=== PATIENT | male | born 1995 | race Caucasian/White ===

== ENCOUNTER 2019-07-11 17:36 | Emergency (ER) | payer OTHER, SELFPAY ==
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
[2019-07-11 17:37] VITALS: BP 145/90; PULSE 94; RESP 20; TEMP 36.5; O2SAT 99
--- NOTE | 2019-07-11 17:43 | ECG_ITS ---
Measurements Intervals [place] Rate: 87 P: 32 ND: 150 QRS: 14 QRSD: 114 T: 17 QT: 346 QTc: 418 Interpretive Statements SINUS RHYTHM INTRAVENTRICULAR CONDUCTION DELAY ST ELEVATION IN ANT/LAT LEADS- PROBABLY EARLY REPOLARIZATION BORDERLINE ECG Electronically Signed On 07-11-2019 18:19:25 CDT by Jean Carlos De La Garza D.O.
[2019-07-11 18:03] LABS: Basophils Absolute Auto 0.1 K/mm3 (0.0-0.1); Basophils Percent Auto 0.7 % (0.2-1.2); Eosinophils Absolute Auto 0.1 K/mm3 (0-0.3); Eosinophils Percent Auto 1.5 % (0-4.4); Hematocrit 43.5 % (42.0-52.0); Hemoglobin 14.6 g/dL (14.0-18.0); Immature Granulocyte Absolute 0.02 K/mm3 (0.00-0.031); Immature Granulocyte Percent A 0.3 % (0-0.5); Lymphocytes Percent Auto 37.3 % (18.3-44.2); Mean Corpuscular HGB Conc 33.6 g/dl (32-36); Mean Corpuscular Hemoglobin 28.7 pg (26-34); Mean Corpuscular Volume 85.6 fl (80-100); Mean Platelet Volume 11.1 fl (7.4-10.4); Monocytes Absolute Auto 0.5 K/mm3 (0.1-0.6); Monocytes Percent Auto 7.5 % (2.6-8.5); Neutrophils Absolute Auto 3.8 K/mm3 (1.3-6.7); Neutrophils Percent Auto 52.7 % (45.5-73.1); Platelet Count Result 199 k/mm3 (150-375); Red Blood Count 5.08 M/mm3 (4.6-6.20); Red Cell Distribution Width 12.9 % (11.5-14.5); White Blood Count 7.2 K/mm3 (4.5-10.0)
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
[2019-07-11 18:15] LABS: Blood Urea Nitrogen 13 mg/dL (9-20); Calcium 9.8 mg/dL (8.4-10.2); Carbon Dioxide 24 mmol/L (22-30); Chloride 101 mmol/L (98-107); Estimated CRCL calculation 145 ml/min; Estimated Glomerular Filt Rate > 60; Glucose 102 mg/dL (75-110); Potassium 3.8 mmol/L (3.4-5.0); Sodium 136 mmol/L (137-145)
[2019-07-11] MEDS: SODIUM CHLORIDE 0.9% IV 1,000 ML 999 ML IV CONT (18:21)
[2019-07-11] MEDS: ONDANSETRON INJ 4 MG/2 ML VIAL IV PUSH (18:22)
[2019-07-11 18:27] LABS: Troponin I < 0.012 ng/mL (0.000-0.034)
[2019-07-11 19:12] VITALS: BP 137/94; PULSE 89
[2019-07-11 19:13] VITALS: BP 136/72; PULSE 80
[2019-07-11 19:14] VITALS: BP 130/72; PULSE 99
[2019-07-11 19:27] VITALS: BP 128/110; PULSE 83; RESP 16; O2SAT 100
[2019-07-11 20:15] VITALS: BP 132/74; PULSE 74; RESP 18; O2SAT 99
== END 2019-07-11 20:25 | disposition home or self-care (01) ==
PROVIDERS: Physician Assistant; Emergency Provider Emergency Medicine; PCP Family Medicine
DX: R55 Syncope and collapse (principal); F17.200 Nicotine dependence, unspecified, uncomplicated
CPT/HCPCS: 36415; 71046; 72040; 73630; 80048; 84484; 85025; 93005; 96361; 96374; 96375; 99284; J0131; J2405; J7030

== ENCOUNTER 2024-12-04 14:45 | Outpatient (CLI) | payer OTHER, SELFPAY ==
--- OUTSIDE RECORDS SUMMARY | 2024-12-04 14:57 | XMS_ITS | Clinical Summary ---
Author Organization [facility] [place] [address] [place] [address] [address] Address [address] [place] [address] Care Team Providers Care Chicken Dresser Name Role Phone Ted Del Valle MD Primary Care Provider [phone] Allergies No known active allergies Social History Tobacco Use Types Packs/Day Years Used Date Smoking Tobacco: Never Assessed Personal Safety Answer Date Recorded Getting School Help Needed Not on file 05/28 Sex and Gender Information Value Date Recorded Sex Assigned at Not on file Legal Sex Male 8:52 AM CDT Gender Identity Not on file Sexual Orientation Not on file Last Filed Vital Signs Vital Sign Reading Time Taken Comments Blood Pressure - - Pulse - - Temperature 36.6 C (97.8 F) 08/07/2019 8:07 AM CDT Respiratory Rate - - Oxygen Saturation - - Inhaled Oxygen Concentration - - Weight - - Height - - Body Mass Index - - Plan of Treatment Not on file Insurance [facility] HMO/PPO Address: [facility] [address] [place] [address] Care Teams Chicken Dresser Relationship Specialty Start Date End Date Ted Del Valle MD [address] [place] [address] PCP - General Family Medicine 07/16/19
--- OUTSIDE RECORDS SUMMARY | 2024-12-04 14:57 | XMS_ITS | Clinical Summary ---
Author Organization [facility] Address [address] [place] [address] Care Team Providers Care Physician Extender Name Role Phone Unavailable Primary Care Provider Unavailabl e Source Comments [facility],non-owned Affiliates and Associated Physician Practices is amultiple site organization consisting of ambulatory clinics and hospital sitesin [place], [place], [place] and [place]. This disclosure is being madepursuant to the Care Everywhere program and may not contain all information available regarding this patient. Last updated 17.[facility] Allergies No known active allergies Medications * Be aware that medications may not be up to date on this document. Alwaysverify current medications with the patient. No known medications Social History Tobacco Use Types Packs/Day Years Used Date Smoking Tobacco: Some Days Cigarettes Smokeless Tobacco: Never Tobacco Cessation:Ready to Q uit: No Alcohol Use Standard Drinks/Week Comments Yes 10 (1 standard drink = 0.6 oz pu re alcohol) Sex and Gender Information Value Date Recorded Sex Assigned at Not on file Legal Sex Male 7:47 AM CDT Gender Identity Male Sexual Orientation Not on file Last Filed Vital Signs Vital Sign Reading Time Taken Comments Blood Pressure 150/80 11/27/2015 9:14 AM CDT Pulse 80 11/27/2015 9:14 AM CDT Temperature 36.8 C (98.2 F) 11/27/2015 9:14 AM CDT Respiratory Rate 16 11/27/2015 9:14 AM CDT Oxygen Saturation 99% 11/27/2015 9:14 AM CDT Inhaled Oxygen Concentration - - Weight 121.6 kg (268 lb) 11/27/2015 7:49 AM CDT Height 195.6 cm (6' 5.01) 11/27/2015 7:49 AM CD T Body Mass Index 31.77 11/27/2015 7:49 AM CDT Plan of Treatment Health Maintenance Due Date Last Done Comments HIV SCREENING 2008 HEPATITIS C SCREENING 03/19/2011 DTAP/TDAP/TD VACCINES (1 - Tdap) 2012 HEPATITIS B VACCINE (1 of 3 - 19+ 3-dose series) 2012 HPV VACCINE (1 - 3-dose SCDM series) 2020 DEPRESSION SCREENING 03/14/2024 COVID-19 VACCINE (1 - 2023-2 5 season) 2024 INFLUENZA VACCINE (#1) 2024 ZOSTER VACCINE (1 of 2) 2043 HIB VACCINE Aged Out No longer eligi ble based on patient's age to complete this topic MENINGOCOCCAL (Group B) VACC INE SHARED DECISION-MAKING Aged Out No longer eligibl e based on patient's age to complete this topic MENINGOCOCCAL GROUPS A/C/Y/W VACCINE Aged Out No longer eligible b ased on patient's age to complete this topic PNEUMOCOCCAL VACCINE Aged Out No long er eligible based on patient's age to complete this topic Insurance [facility] Address: [place] [address] [address] [employer] Member Subscriber Plan / Payer (Ef fective for All Dates) Name:Sushil Gustafson Relation to Subscriber:Self Name:Sushil Gustafson Payer ID:Not on file Group ID:Not on file Type:Worker's Comp Address: [address] [facility] [address] [place] [address] [employer] Member Subscriber Plan / Payer (Ef fective for All Dates) Name:Sushil Gustafson Relation to Subscriber:Self Name:Sushil Gustafson Payer ID:Not on file Group ID:Not on file Type:Worker's Comp Address: [id number] [facility] [address] [place] [address]
[2024-12-04 15:28] LABS: Hematocrit 42.2 % (42.0-52.0); Hemoglobin 14.0 g/dL (14.0-18.0); Immature Granulocyte Percent A 0.5 % (0-0.5); Lymphocytes Absolute Auto 1.99 K/mm3 (0.9-3.2); Mean Corpuscular HGB Conc 33.2 g/dl (32-36); Mean Corpuscular Hemoglobin 29.9 pg (26-34); Mean Corpuscular Volume 90.0 fl (80-100); Nucleated Red Blood Cells Absolute Auto 0.000 K/mm3 (0.0-0.012); Nucleated Red Blood Cells Perc 0.0 % (0.0-0.2); Platelet Count Result 195 k/mm3 (150-375); Red Blood Count 4.69 M/mm3 (4.6-6.20); White Blood Count 8.4 K/mm3 (4.5-10.0)
[2024-12-04 15:40] LABS: Alanine Aminotransferase 55 U/L (6-50); Albumin Level 4.5 g/dL (3.5-5.1); Alkaline Phosphatase 60 U/L (38-126); Anion Gap 9 mmol/L (4-12); Aspartate Amino Transferase 42 U/L (17-59); Bilirubin,Total 0.3 mg/dL (0.2-1.3); Blood Urea Nitrogen 15 mg/dL (9-20); Calcium 8.9 mg/dL (8.4-10.2); Carbon Dioxide 27 mmol/L (22-30); Chloride 103 mmol/L (98-107); Cholesterol 155 mg/dL (0-200); Estimated Glomerular Filt Rate > 60; Glucose 88 mg/dL (65-110); HDL Direct 33 mg/dL; Potassium 4.3 mmol/L (3.4-5.0); Sodium 139 mmol/L (137-145); Total Protein 7.3 g/dL (6.3-8.2); Triglycerides 452 mg/dL (<150)
[2024-12-04 18:34] LABS: Hemoglobin A1C 5.1 % (<5.7)
== END 2024-12-04 14:46 | disposition home or self-care (01) ==
LOC: ANHLAB 14:52
PROVIDERS: PCP Family Medicine
DX: Z00.00 Encounter for general adult medical examination without abnormal findings (principal); Z13.220 Encounter for screening for lipoid disorders
CPT/HCPCS: 36415; 80053; 80061; 83036; 85025